=== PATIENT | female | born 1945 | race African-American/Black ===

== ENCOUNTER 2016-11-05 13:03 | Emergency (ER) | payer OTHER ==
[~2016-11-05] VITALS: Ht 157.5 cm; Wt 56.7 kg
--- NOTE | ~2016-11-05 | EKG ---
[place] [address] [facility] [place] [employer] [place] [address] ELECTROCARDIOGRAM REPORT Name: JENNADOMINGUEZ ESTEVEZ Room #: DEP BRENDON Aquino#: [id number] Admission: 11/05/16 Attend Phys: Discharge: 11/05/16 Date of : 41 Report #: [id number] THIS REPORT FOR: //name// [facility] ED Test Date: 2016-11-05 Test Time: 13:10:13 Pat Name: DOMINGUEZ STEEL Department: Room: Gender: F [employer] Operator: [id number] : 1945 Requested By: Alisia Bland Order Number: [id number] MD: Adin Clarke Measurements Intervals [place] Rate: 64 P: 26 NE: 180 QRS: -33 QRSD: 104 T: 8 QT: 407 QTc: 420 Interpretive Statements Sinus rhythm Left ventricular hypertrophy No previous ECG available for comparison Electronically Signed On 11-10-2016 21:41:34 CDT by Adin Clarke [email or web address] <ELECTRONICALLY SIGNED> By: Adin Clarke MD 11/10/16 2141 1310 1310 Adin Clarke MD /OMA
[2016-11-05 13:31] LABS: ABSOLUTE NEUTROPHILS 2.3 thou/uL (1.4-8.2); BASOPHILS 0.9 % (0.0-2.0); EOSINOPHILS 1.9 % (0.0-3.0); HEMATOCRIT 36.3 % (37.0-47.0); HEMOGLOBIN 12.1 gm/dL (12.0-15.0); MCH 28.6 pg (26.0-34.0); MCHC 33.5 g/dL (28.0-37.0); MCV 85.3 fL (80.0-100.0); MONOCYTES 8.8 % (1.0-8.0); PLATELET COUNT 200 thou/uL (150-400); POLYS 45.4 % (36.0-66.0); RBC 4.25 mil/uL (4.20-5.00); RDW 14.6 % (10.5-14.5)
[2016-11-05 13:33] LABS: MANUAL DIFF NO
[2016-11-05 13:39] LABS: ANION GAP 6 mmol/L (7-16); BUN 15 mg/dL (7-18); CALCIUM 9.1 mg/dL (8.5-10.1); CHLORIDE 104 mmol/L (98-107); CO2 32 mmol/L (21-32); CREATININE 1.1 mg/dL (0.6-1.0); GLUCOSE 104 mg/dL (74-106); POTASSIUM 4.1 mmol/L (3.5-5.1); SODIUM 142 mmol/L (136-145)
[2016-11-05 13:47] LABS: ALBUMIN 4.1 g/dL (3.4-5.0); ALKALINE PHOSPHATASE 75 U/L (46-116); SGOT 24 U/L (15-37); SGPT 13 U/L (30-65); TOTAL BILIRUBIN 0.2 mg/dL (<0.1-1.0); TOTAL PROTEIN 8.6 g/dL (6.4-8.2); TROPONIN-I < 0.04 ng/mL (<0.04-0.07)
[2016-11-05] MEDS ORDERED: LISINOPRIL5 MG PO (13:58)
[2016-11-05] MEDS ORDERED: AMLODIPINE BESY10 MG PO (13:58)
[2016-11-05] MEDS ORDERED: UNICOMPLEX M TA1 TA1 PO (13:59)
[2016-11-05] MEDS ORDERED: ACETAMINOPHEN-1 EAC1 PO (14:20)
[2016-11-05 15:04] VITALS: BP 138/69
== END 2016-11-05 14:21 | disposition home or self-care (01) ==
LOC: ER 13:03
PROVIDERS: Physician Assistant
DX: R07.9 Chest pain, unspecified (principal); R91.1 Solitary pulmonary nodule; I10 Essential (primary) hypertension